=== PATIENT | female | born 1950 | race Caucasian/White ===

== ENCOUNTER → 2018-01-28 | Outpatient (CLI) | payer MEDICARE, OTHER ==
--- NOTE | 2018-01-28 15:31 | RAD ---
Acute abdomen series with chest, 3 views, 01/28/2018: HISTORY: Abdominal pain, possible impaction Gas and stool is present scattered throughout the colon in a nonspecific pattern. No free air is present in the abdomen. Surgical clips are present in the upper pelvis and right upper quadrant of the abdomen. There is no evidence of organomegaly. A small radiopacity overlying the left kidney may represent a renal calcification or overlying bowel content. The heart size is normal. No pulmonary infiltrate is seen. There is no evidence of pleural fluid. IMPRESSION: No acute abdominal abnormality is detected. Electronically signed by: Bakari Mcdaniels MD (01/28/2018 3:28 PM) [facility]
== END | disposition home or self-care (01) ==
LOC: RAD 10:57
PROVIDERS: ATTEND Physician Assistant
DX: Z03.89 Encounter for observation for other suspected diseases and conditions ruled out (principal); R10.0 Acute abdomen; K59.09 Other constipation
CPT/HCPCS: 74022